=== PATIENT | female | born 1980 ===

== ENCOUNTER 2016-05-29 10:17 | Emergency (ER) | payer SELFPAY ==
[2016-05-29 10:41] VITALS: BP 134/93
[2016-05-29] MEDS ORDERED: ZOFRAN IM ONE (11:17)
--- NOTE | 2016-05-29 11:18 | Emergency Department Report ---
Chief Complaint: Chest Pain Stated Complaint: ABD/CHEST/TOOTH PAIN/NAUSEA Time Seen by Provider: 05/29/16 11:13 - HPI History of Present Illness: 36-year-old female comes in for complaint of body aches chest pain nausea vomiting diarrhea going on for about for 5 days. She reports that she is not able to even keep water down. Decrease in appetite felt like everything shutting down on her. Patient does admit after questioned that she drinks every day. - Exam Vital Signs: Vital Signs 05/29/16 10:37 Temperature 98.1 F Pulse Rate 104 H Respiratory 18 Rate Blood Pressure 134/93 O2 Sat by Pulse 97 Oximetry Physical Exam: She is alert and oriented 3 actively vomited exam room. Cardiovascular S1-S2 tachy rate and rhythm respiratory clear to auscultation bilaterally abdomen soft tenderness upper quadrant as well as the lower. Smell of etoh MSE screening note: Focused history and physical exam performed. Due to findings the following was ordered: CBC CMP lipase amylase CT of the abdomen urinalysis urine . Patient be evaluated in the main ER as well as Zofran 8 mg IM given by nurse Castro. ED Disposition for MSE Condition: Stable
[2016-05-29 12:18] LABS: Alanine Aminotransferase 33 units/L (7-56); Albumin 4.5 g/dL (3.9-5); Albumin/Globulin Ratio 1.2 %; Alkaline Phosphatase 72 units/L (35-129); Amylase 184 units/L (27-131); BUN/Creatinine Ratio 15.71; Bilirubin,Total 0.3 mg/dL (0.1-1.2); Blood Urea Nitrogen 11 mg/dL (7-17); Calcium 8.5 mg/dL (8.4-10.2); Carbon Dioxide 22 mmol/L (22-30); Chloride 100.1 mmol/L (98-107); Glucose 93 mg/dL (65-100); Lipase 45 units/L (13-60); Potassium 3.9 mmol/L (3.6-5.0); Sodium 141 mmol/L (137-145); Total Protein 8.3 g/dL (6.3-8.2)
[2016-05-29 12:20] LABS: Hematocrit 43.9 % (30.3-42.9); Hemoglobin 14.6 gm/dl (10.1-14.3); Mean Corpuscular HGB Conc 33 % (30-34); Mean Corpuscular Hemoglobin 30 pg (28-32); Mean Corpuscular Volume 89 fl (79-97); Platelet Count 115 K/mm3 (140-440); Red Blood Count 4.93 M/mm3 (3.65-5.03); Red Cell Distribution Width 15.8 % (13.2-15.2); White Blood Count 3.1 K/mm3 (4.5-11.0)
[2016-05-29 12:24] LABS: Anion Gap 23 mmol/L
[2016-05-29 12:45] LABS: Bacteria,Urine 2+ /HPF (Negative); Bilirubin,Urine NEG (Negative); Blood,Urine SM (Negative); Ketones,Urine TR mg/dL (Negative); Leukocyte Esterase,Urine NEG (Negative); Mucus,Urine 2+ /HPF; Nitrite,Urine NEG (Negative); Urobilinogen,Urine < 2.0 mg/dL (<2.0)
--- NOTE | 2016-05-29 14:07 | Cat Scan Report ---
CT ABDOMEN WITHOUT CONTRAST INDICATION: ETOH user with nausea, vomiting. Evaluate for pancreatitis. COMPARISON: None similar at this institution. FINDINGS: Noncontrast abdomen CT performed. LUNG BASES: Nonspecific distal esophageal wall thickening, not excluded for gastroesophageal reflux and/or hiatal hernia, amongst others. ABDOMEN: Please note that sensitivity to detect small visceral lesions is limited due to the absence of intravenous or oral contrast. Diffuse fatty hepatic infiltration. Otherwise grossly unremarkable unenhanced liver, spleen, gallbladder, adrenals, non-aneurysmal abdominal aorta, IVC and non-hydronephrotic kidneys. No radiopaque gallbladder or renal calculi. No ascites or definite size significant adenopathy. Nonopacified GI tract evaluation limited, though grossly nonobstructive. Normal appendix. Exaggerated fat within suboptimally distended proximal ascending colon wall incidentally noted. Specifically, pancreatic contours grossly preserved, though with subtle haziness in fat surrounding the SMA origin questioned as on axial image 103, series 2, amongst others. No peripancreatic fluid collection. Left gluteal subcutaneous injection related changes. Slight degenerative spurring at few spinal levels. CONCLUSION: Fatty liver and questionable subtle pancreatitis by CT, as detailed above. Please also correlate with laboratory values and note that pancreatitis remains a clinical diagnosis. Thank you for the opportunity to participate in this patient's care.
--- NOTE | 2016-06-03 01:13 | ED Elopement Review ---
ED Pt Elopement review - Results review Lab results: Laboratory Tests 05/29/16 05/29/16 05/29/16 11:42 11:42 12:31 WBC 3.1 L RBC 4.93 Hgb 14.6 H Hct 43.9 H MCV 89 MCH 30 MCHC 33 RDW 15.8 H Plt Count 115 L Sodium 141 Potassium 3.9 Chloride 100.1 Carbon Dioxide 22 Anion Gap 23 BUN 11 Creatinine 0.7 Estimated GFR > 60 BUN/Creatinine Ratio 15.71 Glucose 93 Calcium 8.5 Total Bilirubin 0.3 AST 101 H ALT 33 Alkaline Phosphatase 72 Total Protein 8.3 H Albumin 4.5 Albumin/Globulin Ratio 1.2 Amylase 184 H Lipase 45 Urine Color Yellow Urine Turbidity Slightly-cloudy Urine pH 5.0 Ur Specific [place] 1.028 Urine Protein 100 mg/dl Urine Glucose (UA) Neg Urine Ketones Tr Urine Blood Sm Urine Nitrite Neg Urine Bilirubin Neg Urine Urobilinogen < 2.0 Ur Leukocyte Esterase Neg Urine WBC (Auto) 5.0 Urine RBC (Auto) 7.0 U Epithel Cells (Auto) 11.0 Urine Bacteria (Auto) 2+ Urine Mucus 2+ Urine HCG, Qual Negative - Call Back decision Pt Call Back Decision: Pt to F/U with PMD
== END 2016-05-29 19:00 | disposition left against medical advice (07) ==
LOC: ED 10:17
DX: M79.1 Myalgia (principal); R07.9 Chest pain, unspecified; R11.2 Nausea with vomiting, unspecified; Z53.21 Procedure and treatment not carried out due to patient leaving prior to being seen by health care provider
CPT/HCPCS: 36415; 74150; 80053; 81001; 81025; 82150; 83690; 85027; 96372; J2405; 93005; 93010